=== PATIENT | male | born 1950 | race Caucasian/White ===

== ENCOUNTER 2019-08-27 17:30 | Emergency (ER) | payer MEDICARE, OTHER ==
[2019-08-27 17:41] VITALS: TEMP 98.1
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
[2019-08-27 18:36] VITALS: BP 176/90; O2SAT 95
== END 2019-08-27 18:30 | disposition home or self-care (01) ==
LOC: ER 17:30
DX: R04.0 Epistaxis (principal); J30.89 Other allergic rhinitis; I10 Essential (primary) hypertension; Z91.14 Patient's other noncompliance with medication regimen